=== PATIENT | male | born 1960 | race Asian ===

== ENCOUNTER 2022-07-20 03:36 | Emergency (ER) | payer OTHER ==
[~2022-07-20] VITALS: Ht 172.7 cm; Wt 80.5 kg
[2022-07-20] MEDS ORDERED: FAMO20 PO (03:56)
[2022-07-20] MEDS ORDERED: METO25XL PO (03:56)
[2022-07-20] MEDS ORDERED: ATOR40TA28 PO (03:56)
[2022-07-20] MEDS ORDERED: METF-1211 PO (03:56)
[2022-07-20] MEDS ORDERED: ASPI81TA39 PO (03:56)
[2022-07-20] MEDS ORDERED: HYDR25TA2 PO (03:56)
[2022-07-20 04:12] LABS: BASOPHILS % (AUTO) 0.3 % (0.0-2.0); HEMATOCRIT 41.4 % (41-53); HEMOGLOBIN 13.7 g/dL (13.5-17.5); LYMPHOCYTES # (AUTO) 1.5 K/uL (1.0-4.8); LYMPHOCYTES % (AUTO) 8.7 % (22.0-44.0); MEAN CORPUSCULAR HEMOGLOBIN 29.2 pg (26.0-34.0); MEAN CORPUSCULAR VOLUME 89 fL (80-100); MONOCYTES # (AUTO) 0.8 K/uL (0.1-1.0); MONOCYTES % (AUTO) 4.4 % (2.0-9.0); NEUTROPHILS # (AUTO) 15.1 K/uL (1.8-7.7); PLATELET COUNT (AUTO) 307 K/uL (150-450); RED BLOOD CELL COUNT(AUTO) 4.68 MIL/uL (4.50-5.90); RED CELL DISTRIBUTION WIDTH 13.5 % (11.5-14.5)
[2022-07-20 04:13] LABS: NEUTROPHILS % (AUTO) 85.6 % (40.0-70.0)
[2022-07-20 04:31] LABS: ANION GAP 10 mmol/L (8-16); CALCIUM, TOTAL 9.9 mg/dL (8.8-10.5); CARBON DIOXIDE 26 mmol/L (22-29); CHLORIDE 101 mmol/L (98-107); CREATININE 1.08 mg/dL (0.60-1.30); GLOMERULAR FILTR. RATE CALC > 60 mL/min (>60); GLUCOSE,RANDOM 129 mg/dL (70-110); POTASSIUM 3.1 mmol/L (3.5-5.1); SODIUM SERUM 137 mmol/L (136-145); UREA NITROGEN, BLOOD 14 mg/dL (7-18)
[2022-07-20 04:33] LABS: COVID AG,FIA SOURCE NASAL SWAB
[2022-07-20 04:36] LABS: ALANINE AMINOTRANSFERASE 25 U/L (12-78); ALKALINE PHOSPHATASE 96 U/L (46-116); ASPARTATE AMINOTRANSFERASE 22 U/L (15-37); BILIRUBIN,TOTAL 0.4 mg/dL (0.1-1.0); TOTAL PROTEIN, SERUM 8.1 g/dL (6.4-8.2)
[2022-07-20 04:49] LABS: B-TYPE NATRIURETIC PEPTIDE 137 pg/mL (0-100)
[2022-07-20] MEDS ORDERED: SODIUM,POTASSIUM PHOSPHATES POWDER PACKET PO ONE (05:15)
[2022-07-20 06:39] LABS: APPEARANCE,URINE CLEAR (CLEAR); BILIRUBIN,URINE NEGATIVE (NEGATIVE); GLUCOSE, URINE (UA) NEGATIVE (NEGATIVE); LEUKOCYTE ESTERASE ,URINE NEGATIVE (NEGATIVE); NITRATE,URINE NEGATIVE (NEGATIVE); OCCULT BLOOD,URINE NEGATIVE (NEGATIVE); PROTEIN,URINE NEGATIVE (NEGATIVE); SPECIFIC GRAVITIY, URINE 1.018 (1.003-1.030); UROBILINOGEN,URINE <=1.0 mg/dL (<=1.0)
[2022-07-20 07:04] LABS: LACTIC ACID 1.3 mmol/L (0.4-2.0)
[2022-07-20 08:46] VITALS: BP 143/94
[2022-07-20] MEDS ORDERED: ALBUTEROL SULFATE HFA 90 MCG/PUFF 8 GM INHALER IH ONE (09:00)
[2022-07-20 09:47] LABS: INFLUENZA TYPE A NEGATIVE FOR TYPE A (NEGATIVE); INFLUENZA TYPE B NEGATIVE FOR TYPE B (NEGATIVE)
== END 2022-07-20 09:30 | disposition left against medical advice (07) ==
LOC: EDSEX 03:36 → EMS 03:36
DX: R06.02 Shortness of breath (principal); R91.1 Solitary pulmonary nodule; E11.9 Type 2 diabetes mellitus without complications; I10 Essential (primary) hypertension; F17.210 Nicotine dependence, cigarettes, uncomplicated; Z98.890 Other specified postprocedural states; Z20.822 Contact with and (suspected) exposure to COVID-19
CPT/HCPCS: 99285; 71275; 71045; 87426; 80053; 81003; 83605; 83880; 84484; 85025; 85379; 87040; 87804; 94640; 93005; 84145; 36415; J3535